=== PATIENT | female | born 1970 | race Two or more races ===

== ENCOUNTER 2019-11-28 13:27 | Outpatient (CLI) | payer OTHER | END 2019-11-28 13:51 | disposition home or self-care (01) | LOC: MAMO-SONO 13:27 | DX: Z12.31 Encounter for screening mammogram for malignant neoplasm of breast (principal); Z87.898 Personal history of other specified conditions; N60.11 Diffuse cystic mastopathy of right breast; N60.12 Diffuse cystic mastopathy of left breast ==

== ENCOUNTER 2019-11-28 14:38 | Outpatient (CLI) | payer OTHER | END 2019-11-28 15:50 | disposition home or self-care (01) | LOC: NUCLEAR 14:38 | DX: M81.0 Age-related osteoporosis without current pathological fracture (principal) ==